=== PATIENT | female | born 1990 | race American Indian/Alaskan Native ===

== ENCOUNTER 2020-02-22 14:50 | Emergency (ER) | payer MEDICAID ==
--- NOTE | 2020-02-22 15:15 | Event Note ---
ED Screening Note Date of service: 02/22/20 Time: 15:11 ED Screening Note: 29-year-old -[place] female presents to the emergency room for abdominal pain with cramping vaginal bleeding. Last menstrual period 02/09/2020. 10-15 pads son far today. Having blood clots. On no control. no RISK ASSESSMENT ANALYST. This initial assessment/diagnostic orders/clinical plan/treatment(s) is/are subject to change based on patients health status, clinical progression and re- assessment by fellow clinical providers in the ED. Further treatment and workup at subsequent clinical providers discretion. Patient/guardian urged not to elope from the ED as their condition may be serious if not clinically assessed and managed. Initial orders include:
[2020-02-22] MEDS ORDERED: IBUPROFEN 600 MG TAB PO ONE (15:17)
[2020-02-22 15:45] LABS: Eosinophils # (Auto) 0.1 K/mm3 (0.0-0.4); Eosinophils % (Auto) 2.1 % (0.0-4.3); Hematocrit 32.7 % (30.3-42.9); Hemoglobin 10.1 gm/dl (10.1-14.3); Lymphocytes # (Auto) 2.3 K/mm3 (1.2-5.4); Lymphocytes % (Auto) 47.2 % (13.4-35.0); Mean Corpuscular HGB Conc 31 % (30-34); Mean Corpuscular Volume 71 fl (79-97); Monocytes # (Auto) 0.4 K/mm3 (0.0-0.8); Monocytes % (Auto) 7.7 % (0.0-7.3); Platelet Count 281 K/mm3 (140-440); Red Blood Count 4.63 M/mm3 (3.65-5.03)
[2020-02-22 15:58] LABS: Red Cell Distribution Width 21.1 % (13.2-15.2)
[2020-02-22] MEDS ORDERED: HYDROcodone/ACETAMINOPHEN 5-325 MG TAB PO ONE (17:06)
[2020-02-22] MEDS ORDERED: METOCLOPRAMIDE 10 MG TAB PO ONE (17:06)
--- NOTE | 2020-02-22 17:09 | Emergency Department Report ---
HPI - General Chief Complaint: Abdominal Pain Time Seen by Provider: 02/22/20 15:10 - HPI HPI: This is a 29-year-old -[place] female who presents to the emergency department with a complaint of prolonged menstrual cycle causing heavy vaginal bleeding, nausea and vomiting, and pelvic cramping/discomfort. Currently her pain is 5 out of 10 in intensity. The patient started her last menstrual cycle on February 10. She denies any fever, dysuria, vaginal discharge, back pain. Patient has a history of a previous ovarian cysts and subsequent surgical removal of that cyst. Patient says "I did some research on the Internet and I think I could have fibroids", but the patient denies any known history of fibroids. She does not have any NAIL SPECIALIST. ED Past Medical Hx - Past Medical History Previous Medical History?: Yes Additional medical history: Abd pain, Vaginal delivery x 1, Abnormal uterine bleeding and heavy menses - Surgical History Past Surgical History?: Yes Additional Surgical History: x 1 - Social History Smoking Status: Current Every Day Smoker Substance Use Type: Alcohol - Medications Home Medications: Home Medications Medication Instructions Recorded Confirmed Last Taken Type Docusate Sodium [Colace CAP] 100 mg PO BID PRN #30 capsule 10/07/17 Unknown Rx Ibuprofen [Motrin] 800 mg PO Q8HR PRN #20 tablet 10/07/17 Unknown Rx polyethylene glycoL 3350 [Miralax 17 gm PO QDAY PRN #1 box 10/07/17 Unknown Rx 3350] HYDROcodone/APAP 5-325 [[place] 1 each PO Q6HR PRN #10 tablet 04/21/18 Unknown Rx 5/325] HYDROcodone/APAP 5-325 [[place] 1 each PO Q6HR PRN #8 tablet 02/22/20 Unknown Rx 5/325] Metoclopramide [Reglan] 10 mg PO TID PRN #15 tab 02/22/20 Unknown Rx Nitrofurantoin [place]/M-Cryst 100 mg PO Q12HR #14 capsule 02/22/20 Unknown Rx [Macrobid CAP] medroxyPROGESTERone ACETATE 10 mg PO QDAY #7 tablet 02/22/20 Unknown Rx [Provera] ED Review of Systems ROS: Stated complaint: FIBROIDS/SEVERE PAIN Other details as noted in HPI Comment: All other systems reviewed and negative Constitutional: denies: chills, fever Eyes: denies: eye pain, vision change ENT: denies: ear pain, throat pain Respiratory: denies: cough, shortness of breath Cardiovascular: denies: chest pain, palpitations Gastrointestinal: abdominal pain, nausea, vomiting Genitourinary: abnormal menses. denies: dysuria, discharge Musculoskeletal: denies: back pain, arthralgia Skin: denies: rash, lesions Neurological: denies: headache, weakness Physical Exam - Physical Exam Vital Signs: Vital Signs 02/22/20 15:00 Temperature 98.3 F Pulse Rate 68 Respiratory 20 Rate Blood Pressure 100/65 [Right] O2 Sat by Pulse 100 Oximetry Physical Exam: GENERAL: The patient is well-developed well-nourished. HENT: Normocephalic. Atraumatic. Patient has moist mucous membranes. EYES: Extraocular motions are intact. NECK: Supple. Trachea is midline. CHEST/LUNGS: Clear to auscultation. There is no respiratory distress noted. HEART/CARDIOVASCULAR: Regular. There is no tachycardia. ABDOMEN: Abdomen is soft, nontender. Patient has normal bowel sounds. There is no abdominal distention. SKIN: Skin is warm and dry. NEURO: The patient is awake, alert, and oriented. The patient is cooperative. Normal speech. MUSCULOSKELETAL: There is no tenderness or deformity. There is no limitation range of motion. ED Course Vital Signs 02/22/20 15:00 Temperature 98.3 F Pulse Rate 68 Respiratory 20 Rate Blood Pressure 100/65 [Right] O2 Sat by Pulse 100 Oximetry - Reevaluation(s) Reevaluation #1: 02/22/20 18:40 Lab Results 02/22/20 02/22/20 02/22/20 Range/Units 15:18 15:18 15:18 WBC 4.8 (4.5-11.0) K/mm3 RBC 4.63 (3.65-5.03) M/mm3 Hgb 10.1 (10.1-14.3) gm/dl Hct 32.7 (30.3-42.9) % MCV 71 L (79-97) fl MCH 22 L (28-32) pg MCHC 31 (30-34) % RDW 21.1 H (13.2-15.2) % Plt Count 281 (140-440) K/mm3 Lymph % (Auto) 47.2 H (13.4-35.0) % [place] % (Auto) 7.7 H (0.0-7.3) % Eos % (Auto) 2.1 (0.0-4.3) % Baso % (Auto) 1.0 (0.0-1.8) % Lymph # (Auto) 2.3 (1.2-5.4) K/mm3 [place] # (Auto) 0.4 (0.0-0.8) K/mm3 Eos # (Auto) 0.1 (0.0-0.4) K/mm3 Baso # (Auto) 0.0 (0.0-0.1) K/mm3 Seg Neutrophils % 42.0 (40.0-70.0) % Seg Neutrophils # 2.0 (1.8-7.7) K/mm3 HCG, Quant < 2 (0-4) mIU/mL Urine Color (Yellow) Urine Turbidity (Clear) Urine pH (5.0-7.0) Ur Specific [place] (1.003-1.030) Urine Protein (Negative) mg/dL Urine Glucose (UA) (Negative) mg/dL Urine Ketones (Negative) mg/dL Urine Blood (Negative) Urine Nitrite (Negative) Urine Bilirubin (Negative) Urine Urobilinogen (<2.0) mg/dL Ur Leukocyte Esterase (Negative) Urine WBC (Auto) (0.0-6.0) /HPF Urine RBC (Auto) (0.0-6.0) /HPF U Epithel Cells (Auto) (0-13.0) /HPF Urine Mucus /HPF Blood Type O POSITIVE Antibody Screen Negative 02/22/20 Range/Units 17:10 WBC (4.5-11.0) K/mm3 RBC (3.65-5.03) M/mm3 Hgb (10.1-14.3) gm/dl Hct (30.3-42.9) % MCV (79-97) fl MCH (28-32) pg MCHC (30-34) % RDW (13.2-15.2) % Plt Count (140-440) K/mm3 Lymph % (Auto) (13.4-35.0) % [place] % (Auto) (0.0-7.3) % Eos % (Auto) (0.0-4.3) % Baso % (Auto) (0.0-1.8) % Lymph # (Auto) (1.2-5.4) K/mm3 [place] # (Auto) (0.0-0.8) K/mm3 Eos # (Auto) (0.0-0.4) K/mm3 Baso # (Auto) (0.0-0.1) K/mm3 Seg Neutrophils % (40.0-70.0) % Seg Neutrophils # (1.8-7.7) K/mm3 HCG, Quant (0-4) mIU/mL Urine Color Red (Yellow) Urine Turbidity Cloudy (Clear) Urine pH 5.0 (5.0-7.0) Ur Specific [place] 1.023 (1.003-1.030) Urine Protein 100 mg/dl (Negative) mg/dL Urine Glucose (UA) Neg (Negative) mg/dL Urine Ketones Neg (Negative) mg/dL Urine Blood Lg (Negative) Urine Nitrite Neg (Negative) Urine Bilirubin Neg (Negative) Urine Urobilinogen < 2.0 (<2.0) mg/dL Ur Leukocyte Esterase Tr (Negative) Urine WBC (Auto) 18.0 H (0.0-6.0) /HPF Urine RBC (Auto) > 182.0 (0.0-6.0) /HPF U Epithel Cells (Auto) 11.0 (0-13.0) /HPF Urine Mucus 2+ /HPF Blood Type Antibody Screen Reevaluation #2: 02/22/20 18:40 Vital Signs 02/22/20 02/22/20 15:00 18:00 Temperature 98.3 F Pulse Rate 68 51 L Respiratory 20 Rate Blood Pressure 103/69 Blood Pressure 100/65 [Right] O2 Sat by Pulse 100 99 Oximetry ED Medical Decision Making - Lab Data Result diagrams: 02/22/20 15:18 - Radiology Data Radiology results: report reviewed ULTRASOUND PELVIS INDICATION / CLINICAL INFORMATION: Pelvic pain. TECHNIQUE: Tr ansabdominal and Transvaginal. Duplex Color Doppler used: Yes. COMPARISON: None available FINDINGS: UTERUS: The uterus measures 7.1 cm in length. The endometrial stripe measures 14 mm. Uterus is retroverted. There is a small abutting cysts at the cervix. RIGHT ADNEXA: The right ovary measures 5 cm in length. There is a 3.9 cm complex cyst in the right ovary. Normal color Doppler blood flow. LEFT ADNEXA: Small simple cyst is noted in the left ovary. The left ovary measures 3.2 cm Normal color Doppler blood flow. URINARY BLADDER: No significant abnormality. FREE FLUID: Small amount is noted ADDITIONAL FINDINGS: None. IMPRESSION: 1. There is a 3.9 cm complex cyst in the right ovary. - Medical Decision Making This patient presents with a prolonged menstrual cycle with heavy bleeding that is been going on since February 10, along with pelvic cramping pain. Patient's labs have been mostly unremarkable. Hemoglobin appears stable at greater than 10. Patient is not . No leukocytosis. The patient does have some hematuria and a mild urinary tract infection. A pelvic ultrasound was completed that did not show any signs of torsion or any fibroids but did show a 3.9 cm complex cyst to the right ovary. Patient was given Reglan for her nausea, some ibuprofen and a [place] for her discomfort. There has been no vomiting while in the emergency department. Her vital signs have been reassuring throughout her ED course including being afebrile. For all these reasons the patient appears safe for discharge home at this time. She has been given multiple outpatient referrals for NAIL SPECIALIST groups. She will placed on a 1 week course of Provera for the dysfunctional uterine bleeding. She has been given a prescription for pain medication and antiemetics. She will return to the emergency department with any worsening of her symptoms or with any acute distress. Critical Care Time: No Critical care attestation.: If time is entered above; I have spent that time in minutes in the direct care o f this critically ill patient, excluding procedure time. ED Disposition Clinical Impression: Dysfunctional uterine bleeding Ovarian cyst Qualifiers: Laterality: right Qualified Code(s): N83.201 - Unspecified ovarian cyst, right side UTI (urinary tract infection) Qualifiers: Urinary tract infection type: acute cystitis Hematuria presence: with hematuria Qualified Code(s): N30.01 - Acute cystitis with hematuria Disposition: TO HOME OR SELFCARE Is pt being admited?: No Condition: Stable Instructions: Urinary Tract Infection, Adult, Ovarian Cyst, Dysfunctional Uterine Bleeding, Abdominal Pain (ED) Additional Instructions: Please follow-up with an NAIL SPECIALIST in the next few days. I am giving you a referral for multiple local NAIL SPECIALIST groups. Take the medications as prescribed. Return to the emergency department with any worsening of your symptoms, new or concerning symptoms not addressed during this current emergency department visit, or with any acute distress. You have been prescribed a medication that is sedating and therefore should not be taken prior to driving, working, and responsible for children and in no way should be mixed with alcohol of any quantity. Prescriptions: Nitrofurantoin [place]/M-Cryst [Macrobid CAP] 100 mg PO Q12HR #14 capsule HYDROcodone/APAP 5-325 [[place] 5/325] 1 each PO Q6HR PRN #8 tablet PRN Reason: Pain medroxyPROGESTERone ACETATE [Provera] 10 mg PO QDAY #7 tablet Metoclopramide [Reglan] 10 mg PO TID PRN #15 tab PRN Reason: Nausea Referrals: [facility] [Provider Group] - 3-5 Days [facility] [Provider Group] - 3-5 Days [facility] [Provider Group] - 3-5 Days Time of Disposition: 18:03
--- NOTE | 2020-02-22 17:23 | Ultrasound Report ---
ULTRASOUND PELVIS INDICATION / CLINICAL INFORMATION: Pelvic pain. TECHNIQUE: Transabdominal and Transvaginal. Duplex Color Doppler used: Yes. COMPARISON: None available FINDINGS: UTERUS: The uterus measures 7.1 cm in length. The endometrial stripe measures 14 mm. Uterus is retrov erted. There is a small abutting cysts at the cervix. RIGHT ADNEXA: The right ovary measures 5 cm in length. There is a 3.9 cm complex cyst in the right ov delisa. Normal color Doppler blood flow. LEFT ADNEXA: Small simple cyst is noted in the left ovary. The left ovary measures 3.2 cm Normal colo r Doppler blood flow. URINARY BLADDER: No significant abnormality. FREE FLUID: Small amount is noted ADDITIONAL FINDINGS: None. IMPRESSION: 1. There is a 3.9 cm complex cyst in the right ovary. Signer Name: Sebastian Delgado MD Signed: 02/22/2020 5:19 PM Workstation Name: [id number]
[2020-02-22 17:51] LABS: Bilirubin,Urine NEG (Negative); Blood,Urine LG (Negative); Color,Urine Red (Yellow); Mucus,Urine 2+ /HPF; Urobilinogen,Urine < 2.0 mg/dL (<2.0)
[2020-02-22 17:53] LABS: RBC,Urine > 182.0 /HPF (0.0-6.0)
[2020-02-22 18:29] VITALS: BP 103/69
== END 2020-02-22 18:20 | disposition home or self-care (01) ==
LOC: ED 14:50
DX: N39.0 Urinary tract infection, site not specified (principal); N93.8 Other specified abnormal uterine and vaginal bleeding; N83.201 Unspecified ovarian cyst, right side; F17.200 Nicotine dependence, unspecified, uncomplicated; Z79.899 Other long term (current) drug therapy; Z98.890 Other specified postprocedural states; Z88.6 Allergy status to analgesic agent
CPT/HCPCS: 36415; 76830; 76856; 81001; 84702; 85025; 86850; 86900; 86901; 87086

== ENCOUNTER 2020-03-22 09:14 | Emergency (ER) | payer MEDICAID ==
[2020-03-22 09:22] VITALS: BP 120/74
[2020-03-22] MEDS ORDERED: diphenhydrAMINE 25 MG CAP PO ONE (10:29)
[2020-03-22] MEDS ORDERED: NAPROXEN 500 MG TAB PO ONE (10:29)
[2020-03-22] MEDS ORDERED: METOCLOPRAMIDE 10 MG TAB PO ONE (10:29)
--- NOTE | 2020-03-22 10:29 | Emergency Department Report ---
ED General Adult HPI - General Chief complaint: Abdominal Pain Stated complaint: STOMACH PAIN/VOMIT/CYST Time Seen by Provider: 03/22/20 10:29 Source: patient Mode of arrival: Ambulatory Limitations: No Limitations - History of Present Illness Initial comments: Patient is a 29-year-old female presents emergency room with complaints of abdominal cramping that began 5 days ago. She states her menstrual cycle began 5 days ago. She states that she has been having bleeding for 5 days. She states that she also has associated nausea and a few episodes of vomiting. She denies any fever, diarrhea, dysuria, abnormal vaginal discharge, dizziness, palpitations, shortness of breath. She states that she has an appointment with an CORN BREEDER coming up. She was evaluated in the emergency department for the same symptoms on 02/22/2020 and was diagnosed with ovarian cyst but states that she has not yet been able to follow-up. She denies any other past medical history. She has an allergy to Zofran and Toradol. - Related Data Previous Rx's Medication Instructions Recorded Last Taken Type Docusate Sodium [Colace CAP] 100 mg PO BID PRN #30 capsule 10/07/17 Unknown Rx Ibuprofen [Motrin] 800 mg PO Q8HR PRN #20 tablet 10/07/17 Unknown Rx polyethylene glycoL 3350 [Miralax 17 gm PO QDAY PRN #1 box 10/07/17 Unknown Rx 3350] HYDROcodone/APAP 5-325 [[place] 1 each PO Q6HR PRN #10 tablet 04/21/18 Unknown Rx 5/325] HYDROcodone/APAP 5-325 [[place] 1 each PO Q6HR PRN #8 tablet 02/22/20 Unknown Rx 5/325] Metoclopramide [Reglan] 10 mg PO TID PRN #15 tab 02/22/20 Unknown Rx Nitrofurantoin [place]/M-Cryst 100 mg PO Q12HR #14 capsule 02/22/20 Unknown Rx [Macrobid CAP] medroxyPROGESTERone ACETATE 10 mg PO QDAY #7 tablet 02/22/20 Unknown Rx [Provera] Metoclopramide [Reglan] 10 mg PO Q8HR PRN #12 tab 03/22/20 Unknown Rx Promethazine [Phenergan] 25 mg AR Q6HR PRN #7 supp.rect 03/22/20 Unknown Rx Allergies Allergy/AdvReac Type Severity Reaction Status Date / Time ketorolac [From Toradol] Allergy Unknown Verified 04/21/18 09:44 ondansetron Allergy Hives Verified 10/07/17 13:37 [From Zofran (as hydrochloride)] ED Review of Systems ROS: Stated complaint: STOMACH PAIN/VOMIT/CYST Other details as noted in HPI Comment: All other systems reviewed and negative ED Past Medical Hx - Past Medical History Previous Medical History?: Yes Additional medical history: Abd pain, Vaginal delivery x 1, Abnormal uterine bleeding and heavy menses - Surgical History Past Surgical History?: Yes Additional Surgical History: x 1 - Social History Smoking Status: Never Smoker Substance Use Type: None - Medications Home Medications: Home Medications Medication Instructions Recorded Confirmed Last Taken Type Docusate Sodium [Colace CAP] 100 mg PO BID PRN #30 capsule 10/07/17 Unknown Rx Ibuprofen [Motrin] 800 mg PO Q8HR PRN #20 tablet 10/07/17 Unknown Rx polyethylene glycoL 3350 [Miralax 17 gm PO QDAY PRN #1 box 10/07/17 Unknown Rx 3350] HYDROcodone/APAP 5-325 [[place] 1 each PO Q6HR PRN #10 tablet 04/21/18 Unknown Rx 5/325] HYDROcodone/APAP 5-325 [[place] 1 each PO Q6HR PRN #8 tablet 02/22/20 Unknown Rx 5/325] Metoclopramide [Reglan] 10 mg PO TID PRN #15 tab 02/22/20 Unknown Rx Nitrofurantoin [place]/M-Cryst 100 mg PO Q12HR #14 capsule 02/22/20 Unknown Rx [Macrobid CAP] medroxyPROGESTERone ACETATE 10 mg PO QDAY #7 tablet 02/22/20 Unknown Rx [Provera] Metoclopramide [Reglan] 10 mg PO Q8HR PRN #12 tab 03/22/20 Unknown Rx Promethazine [Phenergan] 25 mg AR Q6HR PRN #7 supp.rect 03/22/20 Unknown Rx ED Physical Exam - General Limitations: No Limitations General appearance: alert, in no apparent distress - Head Head exam: Present: atraumatic, normocephalic - Eye Eye exam: Present: normal appearance - ENT ENT exam: Present: mucous membranes moist - Respiratory Respiratory exam: Present: normal lung sounds bilaterally. Absent: respiratory distress, wheezes, rales, rhonchi, stridor, chest wall tenderness, accessory muscle use, decreased breath sounds, prolonged expiratory - Cardiovascular Cardiovascular Exam: Present: regular rate, normal rhythm, normal heart sounds. Absent: systolic murmur, diastolic murmur, rubs, gallop - GI/Abdominal GI/Abdominal exam: Present: soft, normal bowel sounds. Absent: distended, tenderness, guarding, rebound, rigid - Neurological Exam Neurological exam: Present: alert, oriented X3 - Psychiatric Psychiatric exam: Present: normal affect, normal mood - Skin Skin exam: Present: warm, dry, intact ED Course Vital Signs 03/22/20 03/22/20 03/22/20 09:18 13:44 14:11 Temperature 99 F Pulse Rate 94 H 89 Respiratory 20 18 18 Rate Blood Pressure 120/74 O2 Sat by Pulse 100 100 Oximetry ED Medical Decision Making - Lab Data Vital Signs 03/22/20 03/22/20 03/22/20 09:18 13:44 14:11 Temperature 99 F Pulse Rate 94 H 89 Respiratory 20 18 18 Rate Blood Pressure 120/74 O2 Sat by Pulse 100 100 Oximetry - Medical Decision Making Patient is a 29-year-old female presents emergency room with complaints of abdominal cramping that began 5 days ago. She states her menstrual cycle began 5 days ago. She states that she has been having bleeding for 5 days. She states that she also has associated nausea and a few episodes of vomiting. She denies any fever, diarrhea, dysuria, abnormal vaginal discharge, dizziness, palpitations, shortness of breath. She states that she has an appointment with an CORN BREEDER coming up. She was evaluated in the emergency department for the same symptoms on 02/22/2020 and was diagnosed with ovarian cyst but states that she has not yet been able to follow-up. She denies any other past medical history. She has an allergy to Zofran and Toradol. Vitals are normal. No abdominal tenderness on exam, abdomen is soft, nondistended, no guarding, no rebound, no rigidity, no peritoneal signs, normal bowel sounds. Patient given Reglan and Benadryl while in the emergency department and had no further episodes of vomiting. She was able to tolerate p.o. intake without difficulty. She was given naproxen for pain relief and was able to tolerate that without difficulty. Patient does not have any clinical signs or symptoms of ovarian torsion or acute emergent intra-abdominal pathology. Symptoms likely related to her menstrual cycle/dysmenorrhea and her ovarian cyst. Discussed the importance of CORN BREEDER follow-up with patient. Patient is not currently on control, advised patient to discuss control with her CORN BREEDER given ovarian cyst. Discussed very strict return precautions with patient. Advised patient to be reexamined within the next 3 days. Patient given prescription for Reglan and also given a prescription for Phenergan suppositories if Reglan is not helping. Advised patient Please use medication as prescribed. Increase your water intake. May take Tylenol or ibuprofen as needed for discomfort. Follow-up with CORN BREEDER. It is very important that you follow-up. Return to emergency room any new or worsening symptoms. Critical care attestation.: If time is entered above; I have spent that time in minutes in the direct care of this critically ill patient, excluding procedure time. ED Disposition Clinical Impression: Abnormal uterine bleeding (AUB), Dysmenorrhea Disposition: TO HOME OR SELFCARE Is pt being admited?: No Does the pt Need Aspirin: No Condition: Stable Instructions: Abnormal Uterine Bleeding, Dysmenorrhea, [id number], Abdominal Pain (ED) Additional Instructions: Please use medication as prescribed. Increase your water intake. May take Tylenol or ibuprofen as needed for discomfort. Follow-up with CORN BREEDER. It is very important that you follow-up. Return to emergency room any new or worsening symptoms. Prescriptions: Promethazine [Phenergan] 25 mg AR Q6HR PRN #7 supp.rect PRN Reason: Nausea And Vomiting Metoclopramide [Reglan] 10 mg PO Q8HR PRN #12 tab PRN Reason: Nausea And Vomiting Referrals: PRIMARY CARE,MD [Primary Care Provider] - 2-3 Days your, detective and intelligence analyst [Other] - 2-3 Days Time of Disposition: 13:56 Print Language: TANZANIAN
[2020-03-22] MEDS ORDERED: METOCLOPRAMIDE 10 MG/2 ML INJ IV ONE (10:33)
[2020-03-22] MEDS ORDERED: diphenhydrAMINE 50 MG/ML VIAL IV ONE (10:33)
== END 2020-03-22 14:30 | disposition home or self-care (01) ==
LOC: ED 09:14
DX: N93.9 Abnormal uterine and vaginal bleeding, unspecified (principal); N94.6 Dysmenorrhea, unspecified; Z98.890 Other specified postprocedural states; Z79.1 Long term (current) use of non-steroidal anti-inflammatories (NSAID); Z79.899 Other long term (current) drug therapy; Z88.8 Allergy status to other drugs, medicaments and biological substances
CPT/HCPCS: 96374; 96375; 99282; J1200; J2765